=== PATIENT | male | born 1980 | race Caucasian/White ===

== ENCOUNTER 2023-03-13 10:42 | Emergency (ER) | payer OTHER, SELFPAY ==
[2023-03-13 10:50] VITALS: BP 130/76; PULSE 90; RESP 16; TEMP 36.3; O2SAT 98
[2023-03-13 10:51] VITALS: BP 130/76; PULSE 90; RESP 16; TEMP 36.3; O2SAT 98
--- NOTE | 2023-03-13 11:01 | ED.URI ---
HPI - URI/Sore Throat General Chief Complaint: Upper Respiratory Infection Stated Complaint: Cough History of Present Illness HPI Narrative: 43-year-old male presented for complaint of nonproductive cough and chest congestion x2 weeks. also reports sore throat and nasal congestion. Reports son with similar symptoms. Taking NyQuil for symptoms. He denies shortness of breath, wheezing, fatigue, nausea, vomiting, diarrhea, fevers or chills. States he has tested negative multiple times for COVID. Related Data Home Medications Medication Instructions Recorded Confirmed atorvastatin 10 mg tablet (Lipitor) See Rx Instructions .Route .COMPLEX 03/13/23 03/13/23 carbamazepine 200 mg See Rx Instructions .Route .COMPLEX 03/13/23 03/13/23 tablet,extended release,12 hr (Tegretol XR) Allergies Allergy/AdvReac Type Severity Reaction Status Date / Time No Known Allergies Allergy Verified 11/24/22 08:22 Review of Systems Review of Systems: CONSTITUTIONAL: Denies body aches, fever, chills, or sweats. EYES: Denies visual changes, redness, or discharge. ENT: reports rhinorrhea, congestion CARDIOVASCULAR: Denies chest pain, palpitations, or edema. RESPIRATORY: Reports cough Denies dyspnea. GASTROINTESTINAL: Denies abdominal pain, nausea, vomiting, or diarrhea. SKIN: Denies rash, itching, or wounds. MUSCULOSKELETAL: Denies back pain, joint pain, or myalgia. NEUROLOGIC: Denies headache PMFSH Past Medical History Medical History BMI 40.0-44.9, adult Screen for colon cancer Seizure disorder Family History Family History Mother Hypertension Sibling Diabetes mellitus Father Spinal stenosis Social History Social History Smoking status: Never smoker Second hand tobacco smoke exposure: No Alcohol intake: current Drinks per week: 2 Alcohol use details: beer Substance use: never Substance use type: does not use Lack of Transportation: No Lack of Food: Never True Current Housing: I Have Housing Concerned About Future Housing: No Difficulty Paying Gas/Electric Bills: No Difficulty Paying for Meds: No Currently Unemployed: No Education: Master's Degree or Higher Difficulty w/ Childcare or Family Care: No Living arrangements: with family Occupation/Education: occupation Additional occupation/education comments: accounting Gender identity (if verbalized by the patient): Male Exam Narrative: GENERAL: well-appearing, no acute distress. EYES: conjunctivae clear ENT: Mucous membranes moist. TM pearly hinton with normal light reflex bilaterally; no tragal tenderness. No drooling, no hoarseness, no trismus, uvula midline. No tripod positioning, hot potato voice, or soft palate swelling. NECK: Supple. No lymphadenopathy CHEST: Clear to auscultation, breath sounds equal. Lungs coarse throughout, wheezing to right lower lobe. No respiratory distress, speaks in full sentences. HEART: Regular rate and rhythm. No murmur heard. SKIN: Warm, dry, no rash. NEURO: Alert and oriented x3. Course Course Emergency Course: Patient is aware of diagnosis, understands and agrees to treatment plan. Anticipatory guidance given. Patient agrees to follow-up as directed and is aware of reasons to seek care at the emergency department. Portions of this record may have been created with voice recognition software Level of Care: Express Care Visit Vital Signs Vital signs: Vital Signs Temperature 97.4 F L 03/13/23 10:50 Pulse Rate 90 03/13/23 10:50 Respiratory Rate 16 03/13/23 10:50 Blood Pressure 130/76 03/13/23 10:50 Pulse Oximetry 98 03/13/23 10:50 Oxygen Delivery Room Air 03/13/23 10:50 Temperature 97.4 F L 03/13/23 10:51 Pulse Rate 90 03/13/23 10:51 Respiratory Rate 16 03/13/23 10:51 B
== END 2023-03-13 11:13 | disposition home or self-care (01) ==
PROVIDERS: Emergency Provider Nurse Practitioner Family; PCP Family Medicine
DX: J40 Bronchitis, not specified as acute or chronic (principal); Z79.899 Other long term (current) drug therapy
CPT/HCPCS: 99213; G0463

== ENCOUNTER 2024-02-22 09:20 | Emergency (ER) | payer OTHER, SELFPAY ==
[2024-02-22 09:27] VITALS: BP 127/89; PULSE 85; RESP 16; TEMP 36.6; O2SAT 99
--- NOTE | 2024-02-22 10:04 | ED_ITS ---
HPI - URI/Sore Throat General Chief Complaint: Upper Respiratory Infection Stated Complaint: Sinus Problems Time Seen by Provider: 02/22/24 10:05 Source: patient, RN notes reviewed and old records reviewed Mode of arrival: ambulatory Limitations: no limitations History of Present Illness HPI Narrative: Patient presents with 3-4 days of runny nose, sore throat, ear pain. Been using Flonase and ibuprofen for symptoms with moderate relief. He denies any injury or trauma. He denies any fever, chills, sweats. Denies any body aches. Voices no other concerns or complaints at this time Related Data Allergies Allergy/AdvReac Type Severity Reaction Status Date / Time No Known Allergies Allergy Verified 02/22/24 09:53 Review of Systems Review of Systems: All systems reviewed & are unremarkable except as noted in HPI and below Constitutional: Constitutional: Reports no additional constitutional complaints ENT: Reports system reviewed and no additional complaints, except as documented, Reports otalgia, Reports nasal congestion, Reports nasal discharge, Reports post nasal drip and Reports sore throat Cardiovascular: Cardiovascular: Reports no additional cardiovascular complaints Respiratory: Respiratory: Reports no additional respiratory complaints and Reports cough Gastrointestinal: Gastrointestinal: Reports no additional gastrointestinal complaints [facility] Past Medical History Medical History BMI 40.0-44.9, adult Screen for colon cancer Seizure disorder Family History Family History Mother Hypertension Sibling Diabetes mellitus Father Spinal stenosis Social History Social History Smoking status: Never smoker Second hand tobacco smoke exposure: No Alcohol intake: current Drinks per week: 2 Alcohol use details: beer Substance use: never Substance use type: does not use Lack of Transportation: No Lack of Food: Never True Current Housing: I Have Housing Concerned About Future Housing: No Difficulty Paying Gas/Electric Bills: No Difficulty Paying for Meds: No Currently Unemployed: No Education: Master's Degree or Higher Difficulty w/ Childcare or Family Care: No Living arrangements: with family Occupation/Education: occupation Additional occupation/education comments: accounting Gender identity (if verbalized by the patient): Male Comments At the time of my signature, I reviewed and agree with the nursing past medical, surgical, social, and family history. There is no relevant family history pertinent to the patient complaint. Exam Const: General: cooperative, no acute distress, alert and awake Orientation/consciousness: oriented to person, oriented to place and oriented to time HENMT: Head: normal to inspection Ears: TM abnormal with fluid behind the TM bilateral Mouth: Yes moist mucous membranes Throat: posterior or opharynx abnormal erythema Resp: Effort & Inspection: normal respiratory effort and able to speak in complete sentences Auscultation: clear to auscultation bilaterally, no crackles, no rales, no rhonchi and no wheezes Cardio: Palpation: normal PMI Rate: regular rate Rhythm: regular rhythm Heart sounds: S1 normal heart sound present and S2 normal heart sound present Neuro: General: oriented to person, oriented to place and oriented to time Cranial nerves: Yes CN's II-XII intact bilaterally Psych: Appearance: grossly normal Thought process: Normal thought process present Insight: Good insight present (Psych) Judgement: Good judgement present (Psych) Course Course Level of Care: Express Care Visit Vital Signs Vital signs: Vital Signs Temperature 97.8 F 02/22/24 09:27 Pulse Rate 85 02/22/24 09:27 Respiratory Rate 16 02/22/24 09:27 Blood Pressure 127/89 02/22/24 09:27 Pulse Oximetry 99 02/22/24 09:27 Oxygen Delivery Room Air 02/22/24 09:27 Temperature 97.8 F 02/22/24 09:27 Pulse Rate 85 02/22/24 09:27 Respiratory Rate 16 02/22/24 09:27 Blood Pressure 127/89 02/22/24 09:27 Pulse Oximetry 99 02/22/24 09:27 Oxygen Delivery Room Air 02/22/24 09:27 Reviewed MDM - URI/Sore Throat MDM Narrative Medical decision making narrative: Negative strep, culture pending. Exam consistent with viral URI, could benefit from a few days of steroids. Patient in agreement with plan. Follow-up with primary care provider. Emergency department for new or worse symptoms. Discharge instructions reviewed with patient, as well as provided in writing per nursing staff. The instructions also include specific and strict return/GO TO THE ER as well as f/u information. All questions have been answered, and the patient deny any further questions with discharge and discharge plan. Some parts of this dictation were generated by voice recognition software and may contain typographical and/or grammatical inaccuracies. Differential Diagnosis Differential diagnosis: Likely upper respiratory infection, otitis media, sinusitis, bronchitis and pharyngitis Medical Records Attestation: I reviewed the patient's medical records. Lab Data Attestation: I reviewed the patient's lab results. Discharge Plan Discharge Clinical Impression: Upper respiratory infection Qualifiers: URI type: unspecified viral URI Qualified Code(s): J06.9 - Acute upper respiratory infection, unspecified Patient Disposition: Home, Self-Care Condition: Stable Instructions: Antibiotic Form, Viral Syndrome (ED) Additional Instructions: Take medications as prescribed. Follow-up primary care provider. Emergency department for any new or worse symptoms Patient Language: [place] Prescriptions: New prednisone 50 mg tablet 50 mg PO DAILY 3 Days Qty: 3 0RF fluticasone propionate [Flonase Allergy Relief] 50 mcg/actuation spray,susp ension 1 spray intranasal BID Qty: 16 0RF Rx Instructions: administer into each nostril No Action benzonatate 200 mg capsule 200 mg PO TID PRN (Reason: cough) Qty: 30 0RF methylprednisolone [Medrol (Asman)] 4 mg tablets,dose pack See Rx Instructions .ROUTE .COMPLEX Qty: 21 0RF Rx Instructions: orally per package directions albuterol sulfate 90 mcg/actuation HFA aerosol inhaler 2 inh inhalation QID PRN (Reason: shortness of breath or wheezing) Qty: 8.5 0RF amoxicillin-pot clavulanate 875-125 mg tablet 1 tablet PO Q12H 7 Days Qty: 14 0RF carbamazepine 200 mg tablet extended release 12 hr See Rx Instructions .ROUTE .COMPLEX Qty: 150 12RF Dose Instruction: TAKE 2 TABLETS BY MOUTH EVERY MORNING AND 3 TABLETS AT BEDTIME Rx Instructions: TAKE 2 TABLETS BY MOUTH EVERY MORNING AND 3 TABLETS AT BEDTIME atorvastatin 10 mg tablet See Rx Instructions .ROUTE .COMPLEX Qty: 30 5RF Dose Instruction: TAKE 1 TABLET BY MOUTH EVERY DAY Rx Instructions: TAKE 1 TABLET BY MOUTH EVERY DAY lisinopril 40 mg tablet See Rx Instructions .ROUTE .COMPLEX Qty: 90 1RF Dose Instruction: TAKE 1 TABLET DAILY Rx Instructions: TAKE 1 TABLET DAILY paroxetine HCl 40 mg tablet See Rx Instructions .ROUTE .COMPLEX Qty: 15 5RF Dose Instruction: TAKE 1/2 TABLET BY MOUTH DAILY Rx Instructions: TAKE 1/2 TABLET BY MOUTH DAILY Follow-up/Referrals: Burt Eller MD [Primary Care Provider] - 2 Weeks Time of Disposition: 10:21
[2024-02-22 10:14] LABS: EDSTREPNEGPOS1 Negative (Negative)
== END 2024-02-22 10:33 | disposition home or self-care (01) ==
PROVIDERS: Emergency Provider Nurse Practitioner Family; PCP Family Medicine
DX: J06.9 Acute upper respiratory infection, unspecified (principal)
CPT/HCPCS: 87081; 87880; 99213; G0463

== ENCOUNTER 2024-11-14 08:38 | Outpatient (CLI) | payer OTHER, SELFPAY ==
--- NOTE | ~2024-11-14 | US_ITS ---
US scrotum doppler INDICATION: Follicular cyst of the skin and subcutaneous tissue TECHNIQUE: Testicular sonogram utilizing grayscale and color Doppler FINDINGS: The testes are normal in size and appearance. No focal lesions are seen. The right testes measures 3.9 x 2.9 x 4.6 cm centimeters, and the left testis measures 3.2 x 2.6 x 2.5 cm cm. There is normal vascular flow to both testes. There is an extratesticular oval mass measuring 2.1 x 1.6 x 1.1 cm involving the scrotal sac. This corresponds to the area palpable concern. The right and left epididymides appear normal. There is no varicocele or hydrocele. IMPRESSION: 1. Left extratesticular mass involving the scrotal sac corresponding to the palpable abnormality. This mass measures 2.1 cm. Differential diagnosis includes benign etiologies such as a dermoid/epidermoid inclusion cyst, fibrous pseudotumor of the scrotum, as well as malignant etiologies such as squamous cell carcinoma of the scrotal skin or metastatic disease. Reviewed, dictated and finalized at location O. IMPRESSION: 1. Left extratesticular mass involving the scrotal sac corresponding to the pa lpable abnormality. This mass measures 2.1 cm. Differential diagnosis includes benign etiologies such as a dermoid/epidermoid inclusion cyst, fibrous pseudotu mor of the scrotum, as well as malignant etiologies such as squamous cell carci noma of the scrotal skin or metastatic disease.
== END 2024-11-14 08:39 | disposition home or self-care (01) ==
LOC: MICIMG 08:39
PROVIDERS: PCP Family Medicine; Visit Provider Physician Assistant Medical
DX: L72.9 Follicular cyst of the skin and subcutaneous tissue, unspecified (principal)
CPT/HCPCS: 76870; 93976